=== PATIENT | female | born 1925 | race Caucasian/White ===

== ENCOUNTER 2017-01-15 14:05 | Inpatient (IN) | payer MEDICARE ==
--- NOTE | 2017-01-15 15:01 | EDM.PDOC ---
[id number]: [facility] Time Seen by Provider: 01/15/17 14:45 Source of Information: Reports: Patient, EMS, RN Notes Reviewed History Limitations: Reports: No Limitations - History of Present Illness INITIAL COMMENTS - FREE TEXT/NARRATIVE: 89-year-old female who is been feeling poorly for the last few days, weak, dizzy with activity and intermittent shortness of breath. She denies any chest pain, she's had some persistent nausea but no vomiting. No headache. No fevers or chills. No urinary tract symptoms. On evaluation at the assisted living, she was found to be bradycardic so was sent in to be evaluated. Onset: Unknown/Unsure Severity: Moderate Associated Symptoms: Reports: Malaise, Nausea/Vomiting, Shortness of Breath, Weakness. Denies: Confusion, Chest Pain, Cough - Related Data Allergies Allergy/AdvReac Type Severity Reaction Status Date / Time Penicillins Allergy Swelling Verified 01/15/17 14:28 Home Meds: Home Meds Albuterol Sulfate [Proair Hfa] 8.5 gm IH Q4HR PRN 11/30/13 [History] Aspirin [Aspirin EC] 81 mg PO DAILY 11/30/13 [History] Fluconazole 150 mg PO Q7D 11/30/13 [History] Omeprazole 40 mg PO DAILY 11/30/13 [History] Travoprost [Travatan Z 0.004% Ophth Soln] 1 drop EYEBOTH DAILY 11/30/13 [History ] amLODIPine Besylate [Amlodipine Besylate] 2.5 mg PO DAILY 11/30/13 [History] tiZANidine HCl [Tizanidine HCl] 1 tab PO BEDTIME 01/18/15 [History] Acetaminophen [Tylenol] 650 mg PO TID 01/15/17 [History] Clotrimazole [Lotrimin AF 1% Crm] 30 gm TOP DAILY 01/15/17 [History] Diclofenac Sodium [Voltaren] 1 applic TOP QID 01/15/17 [History] Donepezil HCl [Aricept] 10 mg PO BEDTIME 01/15/17 [History] Furosemide 20 mg PO 1400 01/15/17 [History] Levothyroxine 25 mcg PO ACBREAKFAST 01/15/17 [History] Lisinopril 20 mg PO DAILY 01/15/17 [History] Memantine HCl [Namenda] 10 mg PO BID 01/15/17 [History] Polyethylene Glycol 3350 [MiraLAX] 17 gm PO DAILY 01/15/17 [History] Sucralfate 1 gm PO QID 01/15/17 [History] Acetaminophen [Tylenol] 650 mg PO Q6H PRN #30 tablet 01/17/17 [Rx] Past Medical History Other Genitourinary History: chronic renal failure - Past Surgical History Other Neurological Surgeries/Procedures: spinal surgery * poor historian* Social & Family History - Tobacco Use Smoking Status *Q: Never Smoker Second Hand Smoke Exposure: No - Caffeine Use Caffeine Use: Reports: Coffee, Soda, Tea - Alcohol Use Days Per Week of Alcohol Use: 7 Number of Drinks Per Day: 3 Total Drinks Per Week: 21 - Recreational Drug Use Recreational Drug Use: No ED ROS GENERAL - Review of Systems Review Of Systems: See Below Constitutional: Reports: No Symptoms HEENT: Reports: No Symptoms Respiratory: Reports: Shortness of Breath (Intermittent and mild) Cardiovascular: Denies: Chest Pain GI/Abdominal: Reports: Nausea. Denies: Abdominal Pain, Vomiting : Reports: No Symptoms Skin: Reports: No Symptoms Neurological: Reports: Dizziness, Weakness. Denies: Headache, Syncope Psychiatric: Reports: No Symptoms ED EXAM, GENERAL - Physical Exam Exam: See Below Exam Limited By: No Limitations General Appearance: Alert, No Apparent Distress Eye Exam: Bilateral Eye: EOMI, Other (No jaundice) Throat/Mouth: Normal Inspection, Other (Normal hydration) Head: Atraumatic Respiratory/Chest: No Respiratory Distress, Lungs Clear, Decreased Breath Sounds (Decreased breath sounds throughout, no other abnormality) Cardiovascular: Regular Rate, Rhythm, No Murmur, Bradycardia GI/Abdominal: Soft, Other (Some vague discomfort with palpation of the upper abdomen but no focal tenderness) Extremities: Pedal Edema (Just a trace of lower extremity edema) Neurological: Alert, Oriented, No Motor/Sensory Deficits Skin Exam: Warm, Dry EKG INTERPRETATION EKG Interpretation Comments: EKG revealed sinus bradycardia with a rate of around 30. CBC, CMP and troponin were obtained. Course - Vital Signs Last Recorded V/S: Last Vital Signs Temp 97.9 F 01/17/17 12:00 Pulse 65 01/17/17 12:00 Resp 18 01/17/17 12:00 BP 129/59 L 01/17/17 12:00 Pulse Ox 96 01/17/17 12:00 - Orders/Labs/Meds Labs: Laboratory Tests 01/15/17 01/15/17 01/15/17 Range/Units 14:57 15:15 15:15 WBC 6.0 (4.5-11.0) K/uL RBC 3.95 (3.30-5.50) M/uL Hgb 11.5 L (12.0-15.0) g/dL Hct 33.3 L (36.0-48.0) % MCV 84 (80-98) fL MCH 29 (27-31) pg MCHC 35 (32-36) % Plt Count 315 (150-400) K/uL Neut % (Auto) 51 (36-66) % Lymph % (Auto) 29 (24-44) % [place] % (Auto) 11 H (2-6) % Eos % (Auto) 8 H (2-4) % Baso % (Auto) 1 (0-1) % Sodium 131 L (140-148) mmol/L Potassium 5.4 H (3.6-5.2) mmol/L Chloride 99 L (100-108) mmol/L Carbon Dioxide 28 (21-32) mmol/L Anion Gap 9.4 (5.0-14.0) mmol/L BUN 33 H (7-18) mg/dL Creatinine 1.4 H (0.6-1.0) mg/dL Est Cr Clr Drug Dosing 24.51 mL/min Estimated GFR (MDRD) 35 L (>60) Glucose 116 H (74-106) mg/dL Calcium 9.2 (8.5-10.1) mg/dL Total Bilirubin 0.4 (0.2-1.0) mg/dL AST 14 L (15-37) U/L ALT 17 (12-78) U/L Alkaline Phosphatase 98 (46-116) U/L Troponin I < 0.017 (0.000-0.056) ng/mL Total Protein 7.3 (6.4-8.2) g/dL Albumin 3.3 L (3.4-5.0) g/dL Globulin 4.0 H (2.3-3.5) g/dL Albumin/Globulin Ratio 0.8 L (1.2-2.2) Meds: Medications Discontinued Medications Generic Name Dose Route Start Last Admin Trade Name Freq PRN Reason Stop Dose Admin Acetaminophen 650 mg 01/15/17 17:25 Tylenol PO Q4H PRN Pain (Mild 1-3)/fever Hydrocodone Bitart/Acetaminophen 1 tab 01/16/17 16:00 01/16/17 21:31 [place] 325-5 Mg PO 1 tab Q4H PRN Administration PAIN Albuterol 0 gm 01/15/17 17:25 Ventolin Hfa INH Q4H PRN Dyspnea Albuterol 2.5 mg 01/15/17 17:25 Proventil Neb Soln NEB Q4H PRN Shortness Of Breath/wheezing Albuterol/Ipratropium 3 ml 01/16/17 13:00 01/16/17 13:33 Duoneb 3.0-0.5 Mg/3 Ml INH 3 ml ONCALL RONAK Administration Amlodipine Besylate 2.5 mg 01/16/17 09:00 01/17/17 10:04 Norvasc PO 2.5 mg DAILY RONAK Administration Bupivacaine HCl Confirm 01/16/17 11:44 01/16/17 15:40 Marcaine 0.5% Administered 01/16/17 11:45 10 ml Dose Administration 50 ml .ROUTE .STK-MED ONE Docusate Sodium 100 mg 01/15/17 17:25 Colace PO BID PRN Constipation Donepezil HCl 10 mg 01/15/17 21:00 01/16/17 21:31 Aricept PO 10 mg BEDTIME RONAK Administration Fentanyl Confirm 01/16/17 13:00 Sublimaze Administered 01/16/17 13:01 Dose 100 mcg .ROUTE .STK-MED ONE Furosemide 20 mg 01/16/17 14:00 01/17/17 14:55 Lasix PO 20 mg 1400 RONAK Administration Hydralazine HCl 10 mg 01/15/17 21:24 01/16/17 15:58 Apresoline IVPUSH 10 mg Q4H PRN Administration Hypertension Lactated Ringer's 1,000 mls @ 75 mls/hr 01/15/17 17:25 01/16/17 08:01 Ringers, Lactated IV 75 mls/hr ASDIRECTED RONAK Administration Cefazolin Sodium 2 gm/ Sodium 50 mls @ 100 mls/hr 01/16/17 13:00 08/09/17 13: 30 Chloride IV 01/16/17 13:29 100 mls/hr ONCALL ONE Administration Linezolid Confirm 01/16/17 11:55 Zyvox Administered 01/16/17 11:56 Dose 100 mls @ as directed .ROUTE .STK-MED ONE Dextrose/Lactated Ringer's 1,000 mls @ 100 mls/hr 01/16/17 16:00 Dextrose 5%-Lactated Ringers IV ASDIRECTED RONAK Cefazolin Sodium 2 gm/ Sodium 50 mls @ 100 mls/hr 01/16/17 21:00 01/17/17 14: 27 Chloride IV 01/17/17 13:29 Not Given Q8H RONAK Latanoprost 0 ml 01/15/17 21:00 01/16/17 21:32 Xalatan 0.005% Ophth Soln EYEBOTH 1 drop BEDTIME RONAK Administration Levothyroxine Sodium 25 mcg 01/16/17 07:30 01/17/17 08:10 Levothyroxine PO 25 mcg ACBREAKFAST RONAK Administration Lidocaine/Epinephrine Confirm 01/16/17 11:44 01/16/17 15:41 Xylocaine 1% With Epinephrine 1:100,000 Administered 01/16/17 11:45 10 ml Dose Administration 50 ml .ROUTE .STK-MED ONE Linezolid 200 mg 01/16/17 14:05 01/16/17 14:05 Zyvox IV 01/16/17 14:06 200 mg .STK-MED ONE Administration Lisinopril 20 mg 01/16/17 09:00 01/17/17 10:07 Prinivil PO 20 mg DAILY RONAK Administration Magnesium Hydroxide 30 ml 01/15/17 17:25 Milk Of Magnesia PO Q12H PRN Constipation Memantine 10 mg 01/15/17 21:00 01/17/17 10:06 Namenda PO 10 mg BID RONAK Administration Ondansetron HCl 4 mg 01/15/17 17:25 Zofran IV Q4H PRN Nausea/Vomiting Oxycodone HCl 5 mg 01/15/17 17:25 Oxycodone PO Q4H PRN Pain (moderate 4-6) Pantoprazole Sodium 40 mg 01/16/17 07:30 01/17/17 08:10 Protonix PO 40 mg ACBREAKFAST RONAK Administration Polyethylene Glycol 17 gm 01/16/17 09:00 01/17/17 10:04 Miralax PO 17 gm DAILY RONAK Administration Propofol Confirm 01/16/17 13:00 Diprivan 20 Ml Administered 01/16/17 13:01 Dose 200 mg .ROUTE .STK-MED ONE Propofol Confirm 01/16/17 14:20 Diprivan 20 Ml Administered 01/16/17 14:21 Dose 200 mg .ROUTE .STK-MED ONE Sodium Chloride 10 ml 01/15/17 17:25 Saline Flush FLUSH ASDIRECTED PRN Keep Vein Open Sodium Polystyrene Sulfonate 15 gm 01/15/17 18:00 01/15/17 18:19 Kayexalate PO 01/15/17 18:01 15 gm ONETIME ONE Administration Sucralfate 1 gm 01/15/17 22:00 01/17/17 10:07 Carafate PO 1 gm QID RONAK Administration Tizanidine HCl 4 mg 01/15/17 21:00 01/16/17 21:31 Zanaflex PO 4 mg BEDTIME RONAK Administration - Re-Assessments/Exams Free Text/Narrative Re-Assessment/Exam: Troponin was negative, rest of labs reassuring and not significantly abnormal. Patient remained bradycardic so was admitted for observation, consideration for pacemaker if another cause is not found and rate persists. Departure - Departure Time of Disposition: 18:00 Disposition: Admitted As Inpatient 68 Reason for Transfer *Q: Other Condition: Fair Clinical Impression: Bradycardia
--- NOTE | 2017-01-15 17:01 | PCM.HP ---
H&P History of Present Illness - General Date of Service: 01/15/17 Admit Problem/Dx: Admission Diagnosis/Problem Admission Diagnosis/Problem Bradycardia Source of Information: Patient, Provider, RN Notes Reviewed History Limitations: Reports: Altered Mental Status (Dementia) - History of Present Illness Initial Comments - Free Text/Narative: Ms. Chairez is an 89-year-old woman who is admitted through the emergency department with weakness and lightheadedness secondary to severe sinus bradycardia. She denies any previous cardiac history although she has difficulty recalling recent symptoms and events because of underlying dementia. She reports feeling more weak and lightheaded with shortness of breath and decrease in appetite over the past 2 days. She lives in assisted living facility in [place], when they checked her heart rate this morning it was consistently in the 30s. She was brought into the emergency department evaluation and again has been noted heart rate into the 30s although not continuously. On review medication there are no obvious rate slowing medications other than her Aricept and she's taken this for some time without significant difficulty. - Related Data Allergies/Adverse Reactions: Allergies Allergy/AdvReac Type Severity Reaction Status Date / Time Penicillins Allergy Swelling Verified 01/15/17 14:28 Home Medications: Home Meds Albuterol Sulfate [Proair Hfa] 8.5 gm IH Q4HR PRN 11/30/13 [History] Aspirin [Aspirin EC] 81 mg PO DAILY 11/30/13 [History] Fluconazole 150 mg PO Q7D 11/30/13 [History] Omeprazole 40 mg PO DAILY 11/30/13 [History] Travoprost [Travatan Z 0.004% Ophth Soln] 1 drop EYEBOTH DAILY 11/30/13 [History ] amLODIPine Besylate [Amlodipine Besylate] 2.5 mg PO DAILY 11/30/13 [History] tiZANidine HCl [Tizanidine HCl] 1 tab PO BEDTIME 01/18/15 [History] Acetaminophen [Tylenol] 650 mg PO TID 01/15/17 [History] Clotrimazole [Lotrimin AF 1% Crm] 30 gm TOP DAILY 01/15/17 [History] Diclofenac Sodium [Voltaren] 1 applic TOP QID 01/15/17 [History] Donepezil HCl [Aricept] 10 mg PO BEDTIME 01/15/17 [History] Furosemide 20 mg PO 1400 01/15/17 [History] Levothyroxine 25 mcg PO ACBREAKFAST 01/15/17 [History] Lisinopril 20 mg PO DAILY 01/15/17 [History] Memantine HCl [Namenda] 10 mg PO BID 01/15/17 [History] Polyethylene Glycol 3350 [MiraLAX] 17 gm PO DAILY 01/15/17 [History] Sucralfate 1 gm PO QID 01/15/17 [History] Past Medical History HEENT History: Reports: Other (See Below) Other HEENT History: unable to obtain Cardiovascular History: Reports: Other (See Below) Other Cardiovascular History: unable to obtain Respiratory History: Reports: Other (See Below) Other Respiratory History: unable to obtain Gastrointestinal History: Reports: Other (See Below) Other Gastrointestinal History: unable to obtain Other Genitourinary History: chronic renal failure Musculoskeletal History: Reports: Other (See Below) Other Musculoskeletal History: unable to obtain Neurological History: Reports: Other (See Below) Other Neuro History: unable to obtain Endocrine/Metabolic History: Reports: Other (See Below) Other Endocrine/Metabolic History: unable to obtain - Past Surgical History Other Neurological Surgeries/Procedures: spinal surgery * poor historian* Social & Family History - Tobacco Use Smoking Status *Q: Never Smoker Second Hand Smoke Exposure: No - Caffeine Use Caffeine Use: Reports: Coffee, Soda, Tea - Alcohol Use Days Per Week of Alcohol Use: 7 Number of Drinks Per Day: 3 Total Drinks Per Week: 21 - Recreational Drug Use Recreational Drug Use: No H&P Review of Systems - Review of Systems: Review Of Systems: See Below General: Reports: Weakness, Decreased Appetite HEENT: Reports: No Symptoms Pulmonary: Reports: No Symptoms Cardiovascular: Reports: Dyspnea on Exertion, Lightheadedness. Denies: Chest Pain, Palpitations, Orthopnea, PND, Edema, Syncope Gastrointestinal: Reports: No Symptoms Genitourinary: Reports: No Symptoms Musculoskeletal: Reports: No Symptoms Skin: Reports: No Symptoms Psychiatric: Reports: No Symptoms Neurological: Reports: No Symptoms Hematologic/Lymphatic: Reports: No Symptoms Immunologic: Reports: No Symptoms Exam - Exam Exam: See Below - Vital Signs Vital Signs: Last Vital Signs Temp 97.6 F 01/15/17 14:26 Pulse 60 01/15/17 14:26 Resp 16 01/15/17 14:26 BP 149/68 H 01/15/17 14:26 Pulse Ox 95 01/15/17 14:26 Weight: 200 lb - Exam Quality Assessment: DVT Prophylaxis General: Alert, Cooperative HEENT: Conjunctiva Clear, Hearing Intact, Mucosa Moist & [place], Normal Nasal Septum, Posterior Pharynx Clear, Pupils Equal Neck: Supple, Trachea Midline, +2 Carotid Pulse wo Bruit Lungs: Clear to Auscultation, Normal Respiratory Effort Cardiovascular: Regular Rhythm, Normal S1, Normal S2, Bradycardia. No: Systolic Murmur, Diastolic Murmur GI/Abdominal Exam: Normal Bowel Sounds, Soft, Non-Tender, No Distention Back Exam: Normal Inspection, Full Range of Motion, NT Extremities: Normal Inspection, No Pedal Edema Skin: Warm, Dry, Intact Neurological: Cranial Nerves Intact, Strength Equal Bilateral, Normal Speech, Normal Tone, Sensation Intact. No: Focal Deficit Neuro Extensive - Mental Status: Alert, Disorientation to Time, Memory Loss- Recent Events. No: Memory Intact, Disorientation to Person, Disorientation to Place, Memory Loss-Remote Events - Patient Data Result Diagrams: 01/15/17 15:15 01/15/17 15:15 *Q Meaningful Use (ADM) - VTE *Q VTE Criteria *Q: VTE Pharmacological Contraindications *Q: Patient Scheduled Surgery - VTE Risk Assess *Q Each Risk Factor Represents 1 Point: Obesity (BMI greater than 30) Total Score 1 Point Risk Factors: 1 Each Risk Factor Represents 2 Points: None Total Score 2 Point Risk Factors: 0 Each Risk Factor Represents 3 Points: Age 75 Years or Greater Total Score 3 Point Risk Factors: 3 Each Risk Factor Represents 5 Points: None Total Score 5 Point Risk Factors: 0 Venous Thromboembolism Risk Factor Score *Q: 4 - Stroke *Q Stroke Criteria *Q: - AMI *Q AMI Criteria *Q: Problem List Initiated/Reviewed/Updated: Yes Orders Last 24hrs: Active Orders 24 hr Category Date Time Status Resuscitation Status Routine Resus Stat 01/15/17 16:34 Ordered Assessment/Plan Comment:: ASSESSMENT AND PLAN SYMPTOMATIC SINUS BRADYCARDIA-she's had symptoms of weakness, lightheadedness, shortness of breath, and decreased appetite over the past 2 days. This morning when heart rate was checked at the assisted living facility was noted to be consistently in the 30s. She is also had documented heart rates with sinus bradycardia in the emergency department. She is on no obvious rate slowing medication other than possibly the Aricept although she's taken this for some time and has not had previous difficulties. -Admit to ICU for monitoring -Nothing by mouth after midnight -IV fluids for hydration -Consult Dr. Palmer in a.m. for dual-chamber permanent pacemaker placement HYPERKALEMIA -Kayexalate 15 g by mouth now -Repeat potassium level in a.m. CHRONIC KIDNEY DISEASE STAGE III -Closely monitor renal function and urine output during hospital stay DEMENTIA -Continue outpatient medical regimen MAINTENANCE ISSUES -DVT prophylaxis; SCUDs, hold on anticoagulation pending pacemaker placement -GI prophylaxis; not indicated -Croft catheter; not indicated -Nutrition; regular diet, nothing by mouth after midnight -Nicotine dependence; not required CODE STATUS-FULL CODE ADMISSION STATUS-patient will be admitted to inpatient status, expect at least a 2 night hospital stay for evaluation and management of problems as outlined above. At the time of this admission I do not reasonably expected evaluation and management of this problem will require more than a 96 hour hospital stay. DISPOSITION-anticipate discharge to home after the hospital stay. PRIMARY CARE PROVIDER-
[2017-01-15] MEDS ORDERED: oxyCODONE 5 MG Tab PO PRN (17:25)
[2017-01-15] MEDS ORDERED: Albuterol 8 GM Inhaler INH PRN (17:25)
[2017-01-15] MEDS ORDERED: Albuterol 0.083% 2.5 MG/3 ML Neb Soln NEB PRN (17:25)
[2017-01-15] MEDS ORDERED: Ondansetron 4 MG/2 ML SDV IV PRN (17:25)
[2017-01-15] MEDS ORDERED: Docusate Sodium 100 MG Cap PO PRN (17:25)
[2017-01-15] MEDS ORDERED: Acetaminophen 325 MG Tab PO PRN (17:25)
[2017-01-15] MEDS ORDERED: Sodium Chloride 0.9% 10 ML Syringe FLUSH PRN (17:25)
[2017-01-15] MEDS ORDERED: Magnesium Hydroxide 400 MG/5 ML Susp 30 ML Cup PO PRN (17:25)
[2017-01-15] MEDS ORDERED: Sodium Polystyrene Sulfonate 15 GM/60 ML Susp 60 ML Bot PO ONE (18:00)
[2017-01-15] MEDS: Lactated Ringers 1,000 ML IV SCH (18:46)
[2017-01-15] MEDS: tiZANidine 4 MG Tab PO SCH (20:57)
[2017-01-15] MEDS: Donepezil 10 MG Tab PO SCH (20:57)
[2017-01-15] MEDS: Memantine 10 MG Tab PO SCH (20:57)
[2017-01-15] MEDS: Latanoprost 0.005% Ophth Soln 2.5 ML Bottle EYEBOTH SCH (20:58)
[2017-01-15] MEDS: Sucralfate 1 GM Tab PO SCH (21:02)
[2017-01-15] MEDS: hydrALAZINE 20 MG/ML SDV IVPUSH PRN (22:04)
[2017-01-16] MEDS: Sucralfate 1 GM Tab PO SCH ×4 (05:57→21:31)
[2017-01-16] MEDS: Lactated Ringers 1,000 ML IV SCH (08:01)
[2017-01-16] MEDS: Levothyroxine 25 MCG Tab PO SCH (08:56)
[2017-01-16] MEDS: Pantoprazole 40 MG Tab.CR PO SCH (08:56)
[2017-01-16] MEDS: Polyethylene Glycol 3350 Powder 17 GM Packet PO SCH (08:57)
[2017-01-16] MEDS: amLODIPine 2.5 MG Tab PO SCH (08:58)
[2017-01-16] MEDS: Memantine 10 MG Tab PO SCH ×2 (08:58→21:31)
[2017-01-16] MEDS: Lisinopril 20 MG Tab PO SCH (08:59)
--- NOTE | 2017-01-16 09:21 | PCM.PN ---
- General Info Date of Service: 01/16/17 Functional Status: Reports: Pain Controlled - Review of Systems General: Reports: Weakness. Denies: Fever, Chills Pulmonary: Reports: No Symptoms Cardiovascular: Reports: No Symptoms Gastrointestinal: Reports: No Symptoms Psychiatric: Reports: Confusion Systems Review Comment:: Ms. Chairez has remained fairly stable since admission, while in the intensive care unit has not had significant bradycardia as she did yesterday at the assisted living and in the emergency department. She did not sleep well and feels somewhat tired but otherwise denies significant symptoms. Vital signs have otherwise been stable and she has remained afebrile. - Patient Data Vitals - Most Recent: Last Vital Signs Temp 98.4 F 01/16/17 07:00 Pulse 75 01/16/17 07:00 Resp 22 H 01/16/17 07:00 BP 194/64 H 01/16/17 08:59 Pulse Ox 94 L 01/16/17 07:00 Weight - Most Recent: 199 lb 0.004 oz I&O - Last 24 Hours: Intake & Output 01/15/17 01/16/17 01/16/17 22:59 06:59 14:59 Intake Total 818 Balance 818 Lab Results Last 24 Hours: Laboratory Results - last 24 hr 01/16/17 01/16/17 Range/Units 05:58 05:58 Sodium 135 L (140-148) mmol/L Potassium 4.1 (3.6-5.2) mmol/L Chloride 102 (100-108) mmol/L Carbon Dioxide 26 (21-32) mmol/L Anion Gap 11.1 (5.0-14.0) mmol/L BUN 26 H (7-18) mg/dL Creatinine 1.1 H (0.6-1.0) mg/dL Est Cr Clr Drug Dosing 31.20 mL/min Estimated GFR (MDRD) 47 L (>60) Glucose 97 (74-106) mg/dL Calcium 9.2 (8.5-10.1) mg/dL TSH, Ultra Sensitive 1.949 (0.358-3.740) uIU/mL Med Orders - Current: Current Medications Acetaminophen (Tylenol) 650 mg PO Q4H PRN PRN Reason: Pain (Mild 1-3)/fever Albuterol (Ventolin Hfa) 0 gm INH Q4H PRN PRN Reason: Dyspnea Albuterol (Proventil Neb Soln) 2.5 mg NEB Q4H PRN PRN Reason: Shortness Of Breath/wheezing Albuterol/Ipratropium (Duoneb 3.0-0.5 Mg/3 Ml) 3 ml INH ONCALL RONAK Amlodipine Besylate (Norvasc) 2.5 mg PO DAILY [facility] Last Admin: 01/16/17 08:58 Dose: 2.5 mg Docusate Sodium (Colace) 100 mg PO BID PRN PRN Reason: Constipation Donepezil HCl (Aricept) 10 mg PO BEDTIME [facility] Last Admin: 01/15/17 20:57 Dose: 10 mg Furosemide (Lasix) 20 mg PO 1400 RONAK Hydralazine HCl (Apresoline) 10 mg IVPUSH Q4H PRN PRN Reason: Hypertension Last Admin: 01/15/17 22:04 Dose: 10 mg Lactated Ringer's (Ringers, Lactated) 1,000 mls @ 75 mls/hr IV ASDIRECTED [facility] Last Admin: 01/16/17 08:01 Dose: 75 mls/hr Cefazolin Sodium 2 gm/ Sodium (Chloride) 50 mls @ 100 mls/hr IV ONCALL ONE Stop: 01/16/17 13:29 Latanoprost (Xalatan 0.005% Ophth Soln) 0 ml EYEBOTH BEDTIME [facility] Last Admin: 01/15/17 20:58 Dose: 1 drop Levothyroxine Sodium (Levothyroxine) 25 mcg PO ACBREAKFAST [facility] Last Admin: 01/16/17 08:56 Dose: 25 mcg Lisinopril (Prinivil) 20 mg PO DAILY [facility] Last Admin: 01/16/17 08:59 Dose: 20 mg Magnesium Hydroxide (Milk Of Magnesia) 30 ml PO Q12H PRN PRN Reason: Constipation Memantine (Namenda) 10 mg PO BID [facility] Last Admin: 01/16/17 08:58 Dose: Not Given Ondansetron HCl (Zofran) 4 mg IV Q4H PRN PRN Reason: Nausea/Vomiting Oxycodone HCl (Oxycodone) 5 mg PO Q4H PRN PRN Reason: Pain (moderate 4-6) Pantoprazole Sodium (Protonix) 40 mg PO ACBREAKFAST [facility] Last Admin: 01/16/17 08:56 Dose: 40 mg Polyethylene Glycol (Miralax) 17 gm PO DAILY [facility] Last Admin: 01/16/17 08:57 Dose: Not Given Sodium Chloride (Saline Flush) 10 ml FLUSH ASDIRECTED PRN PRN Reason: Keep Vein Open Sucralfate (Carafate) 1 gm PO QID [facility] Last Admin: 01/16/17 08:59 Dose: Not Given Tizanidine HCl (Zanaflex) 4 mg PO BEDTIME [facility] Last Admin: 01/15/17 20:57 Dose: 4 mg Discontinued Medications Sodium Polystyrene Sulfonate (Kayexalate) 15 gm PO ONETIME ONE Stop: 01/15/17 18:01 Last Admin: 01/15/17 18:19 Dose: 15 gm - Exam Quality Assessment: DVT Prophylaxis General: Alert, Cooperative, No Acute Distress Lungs: Clear to Auscultation, Normal Respiratory Effort Cardiovascular: Regular Rhythm, No Murmurs, Bradycardia. No: Irregular Rhythm, Tachycardia GI/Abdominal Exam: Normal Bowel Sounds, Soft, Non-Tender, No Distention Extremities: Normal Inspection, No Pedal Edema Skin: Warm, Dry, Intact - Problem List Review Problem List Initiated/Reviewed/Updated: Yes - My Orders Last 24 Hours: My Active Orders 01/15/17 16:34 Resuscitation Status Routine 01/15/17 17:25 Patient Status [ADT] Routine Bedrest Bedside Commode [RC] ASDIRECTED Intake and Output [RC] QSHIFT Notify Provider Consults [RC] ASDIRECTED Notify Provider Vital Signs [RC] ASDIRECTED Oxygen Therapy [RC] PRN Peripheral IV Care [RC] Q12H RT Aerosol Therapy [RC] ASDIRECTED Up With Assistance [RC] ASDIRECTED VTE/DVT Education [RC] Per Unit Routine Vital Signs [RC] Q2H Consult to Physician [CONS] Routine Acetaminophen [Tylenol] 650 mg PO Q4H PRN Albuterol [Proventil Neb Soln] 2.5 mg NEB Q4H PRN Docusate Sodium [Colace] 100 mg PO BID PRN Lactated Ringers [Ringers, Lactated] 1,000 ml IV ASDIRECTED Magnesium Hydroxide [Milk of Magnesia] 30 ml PO Q12H PRN Ondansetron [Zofran] 4 mg IV Q4H PRN Sodium Chloride 0.9% [Saline Flush] 10 ml FLUSH ASDIRECTED PRN oxyCODONE 5 mg PO Q4H PRN Peripheral IV Insertion Adult [OM.PC] Routine Sequential Compression Device [OM.PC] Per Unit Routine VTE Pharmacological Contraindications [AST] Per Unit Routine 01/15/17 21:24 hydrALAZINE [Apresoline] 10 mg IVPUSH Q4H PRN 01/16/17 Breakfast Nothing per Oral After Midnight Diet [DIET] - Plan Plan:: ASSESSMENT AND PLAN SYMPTOMATIC SINUS BRADYCARDIA-she's had symptoms of weakness, lightheadedness, shortness of breath, and decreased appetite over the past 2 days. This morning when heart rate was checked at the assisted living facility was noted to be consistently in the 30s. She is also had documented heart rates with sinus bradycardia in the emergency department. She is on no obvious rate slowing medication other than possibly the Aricept although she's taken this for some time and has not had previous difficulties. -Admit to ICU for monitoring -Nothing by mouth after midnight -IV fluids for hydration -Dual-chamber permanent pacemaker placement today by Dr. Palmer HYPERKALEMIA-resolved with management CHRONIC KIDNEY DISEASE STAGE III -Closely monitor renal function and urine output during hospital stay DEMENTIA -Continue outpatient medical regimen MAINTENANCE ISSUES -DVT prophylaxis; SCUDs, hold on anticoagulation pending pacemaker placement -GI prophylaxis; not indicated -Croft catheter; not indicated -Nutrition; regular diet, nothing by mouth after midnight -Nicotine dependence; not required CODE STATUS-FULL CODE ADMISSION STATUS-patient will be admitted to inpatient status, expect at least a 2 night hospital stay for evaluation and management of problems as outlined above. At the time of this admission I do not reasonably expected evaluation and management of this problem will require more than a 96 hour hospital stay. DISPOSITION-anticipate discharge to home after the hospital stay. PRIMARY CARE PROVIDER-
[2017-01-16] MEDS: hydrALAZINE 20 MG/ML SDV IVPUSH PRN ×2 (10:02→15:58)
[2017-01-16] MEDS ORDERED: Lidocaine 1% with EPINEPHrine 1:100,000 50 ML MDV ONE (11:44)
[2017-01-16] MEDS ORDERED: Bupivacaine 0.5% 50 ML MDV ONE (11:44)
[2017-01-16] MEDS ORDERED: ceFAZolin 2 GM in Sodium Chloride 0.9% 50 ML IV ONE (13:00)
[2017-01-16] MEDS ORDERED: Albuterol/Ipratropium 3.0-0.5 MG/3 ML Neb Soln INH SCH (13:00)
[2017-01-16] MEDS ORDERED: Propofol 200 MG/20 ML SDV ONE ×2 (13:00→14:20)
[2017-01-16] MEDS ORDERED: fentaNYL 100 MCG/2 ML SDV ONE (13:00)
[2017-01-16] MEDS ORDERED: Linezolid 200 MG/100 ML Bag IV ONE (14:05)
[2017-01-16] MEDS ORDERED: Dextrose 5%-Lactated Ringers 1,000 ML IV SCH (16:00)
[2017-01-16] MEDS: Furosemide 20 MG Tab PO SCH (16:07)
[2017-01-16] MEDS: Acetaminophen/HYDROcodone 325-5 MG Tab PO PRN ×2 (17:39→21:31)
[2017-01-16] MEDS: ceFAZolin 2 GM in Sodium Chloride 0.9% 50 ML IV SCH (21:30)
[2017-01-16] MEDS: tiZANidine 4 MG Tab PO SCH (21:31)
[2017-01-16] MEDS: Donepezil 10 MG Tab PO SCH (21:31)
[2017-01-16] MEDS: Latanoprost 0.005% Ophth Soln 2.5 ML Bottle EYEBOTH SCH (21:32)
[2017-01-17] MEDS: ceFAZolin 2 GM in Sodium Chloride 0.9% 50 ML IV SCH ×2 (04:34→14:27)
[2017-01-17] MEDS: Sucralfate 1 GM Tab PO SCH ×2 (06:56→10:07)
[2017-01-17] MEDS: Pantoprazole 40 MG Tab.CR PO SCH (08:10)
[2017-01-17] MEDS: Levothyroxine 25 MCG Tab PO SCH (08:10)
[2017-01-17] MEDS: Polyethylene Glycol 3350 Powder 17 GM Packet PO SCH (10:04)
[2017-01-17] MEDS: amLODIPine 2.5 MG Tab PO SCH (10:04)
[2017-01-17] MEDS: Memantine 10 MG Tab PO SCH (10:06)
[2017-01-17] MEDS: Lisinopril 20 MG Tab PO SCH (10:07)
[2017-01-17 12:51] VITALS: BP 129/59
[2017-01-17] MEDS: Furosemide 20 MG Tab PO SCH (14:55)
--- NOTE | 2017-01-20 12:16 | OR ---
DATE OF PROCEDURE: 01/16/2017 PREOPERATIVE DIAGNOSIS: Symptomatic sinus bradycardia. POSTOPERATIVE DIAGNOSIS: Symptomatic sinus bradycardia. OPERATIVE PROCEDURE: Placement of dual-chamber cardiac pacemaker (54535). ANESTHESIA: Local plus IV sedation. INDICATION FOR PROCEDURE: This is an 89-year-old presenting to the emergency room yesterday with symptomatic sinus bradycardia with rates as low as the upper 20s and 30s. Plan is to proceed with a dual-chamber pacemaker placement. Potential risks including bleeding, infection, malfunction of the pacemaker system, injury to underlying vasculature and/or lung were reviewed, and the patient wishes to proceed. DETAILS OF PROCEDURE: The patient was taken to the operating room and placed in a supine position. IV sedation was administered after which the upper chest and neck areas were prepped and draped. The left subclavian area was anesthetized with 1% lidocaine mixed with Marcaine, after which the left subclavian vein was cannulated, guidewire was passed and manipulated into the superior vena cava. Some additional local was then injected and a transverse incision was made and carried down through the skin and subcutaneous tissue, and through the pectoralis major fascia. At the plane behind the pectoralis major fascia, the pocket was then developed bluntly. At that point, a second wire was then placed. The Medtronic leads were then placed over the introducing peel-away catheters. Both of these were screw-in type leads. The atrial lead was Medtronic, model number 5076-45, and the ventricular 5076-52. Initially, the ventricular lead was placed. This was positioned up on the septum and screwed in and adequate electrical measurements were noted. The atrial lead was then similarly placed and likewise adequate pacing thresholds were identified. Both leads were tested at 10 V with no diaphragmatic pacing identified. The lesion was then positioned in the pocket with some 3-0 Vicryl stitch. The Medtronic pulse generator, model number [id number] was in place, and the adequate pacing and sensing functions were noted. The redundant lead and pulse generator were then placed in the pocket, which was then irrigated with Zyvox-containing saline solution. The incision was closed with some 3-0 Vicryl stitch deep and then a 4-0 Vicryl subcuticular stitch. Dressing was applied. The patient was taken to the recovery room in a satisfactory condition. Cain Palmer MD /[id number] cc: Copy sent to Steven Soto, SWETHA Hare
--- NOTE | 2017-01-21 09:46 | DISCH ---
FINAL DIAGNOSIS: Symptomatic sinus bradycardia. SECONDARY DIAGNOSES: 1. Gastroesophageal reflux disease. 2. Treated hypothyroidism. 3. Chronic constipation. 4. History of hypertension. 5. Dementia, being treated with Aricept. OPERATIVE PROCEDURE: Insertion of dual-chamber cardiac pacemaker that was done on 01/16/2017. HOSPITAL COURSE: This is an 89-year-old female presenting with symptomatic sinus bradycardia with her heart rate down in the 30s. After preoperative evaluation by Dr. Palmer and Dr. Sahu, the decision was made to proceed with a dual-chamber pacemaker that was placed without incident on 01/16/2017. Postoperatively, she has had no significant problems. She was discharged back to assisted living. Continue her present medications including Haldol for pain. Follow up will be with Dr. Palmer in [facility] on 02/23/2017 and the Cardiology service in [place] will be calling the patient regarding getting the pacemaker followup equipment set up. CC: [facility] [place] [facility]
== END 2017-01-17 16:25 | disposition other institution (70) | DRG 244 ==
LOC: JP.ED 14:05 → JP.ICU 16:27
PROVIDERS: ADMIT Hospitalist; ATTEND Hospitalist
PROC: 0JH606Z Insertion of Pacemaker, Dual Chamber into Chest Subcutaneous Tissue and Fascia, Open Approach (ICD-10-PCS; principal; 2017-01-16)
PROC: 02HL3JZ Insertion of Pacemaker Lead into Left Ventricle, Percutaneous Approach (ICD-10-PCS; 2017-01-16)
DX: R00.1 Bradycardia, unspecified (principal); N18.9 Chronic kidney disease, unspecified; K21.9 Gastro-esophageal reflux disease without esophagitis; E03.9 Hypothyroidism, unspecified; K59.09 Other constipation; F03.90 Unspecified dementia, unspecified severity, without behavioral disturbance, psychotic disturbance, mood disturbance, and anxiety; E87.5 Hyperkalemia; I12.9 Hypertensive chronic kidney disease with stage 1 through stage 4 chronic kidney disease, or unspecified chronic kidney disease; Z79.899 Other long term (current) drug therapy; Z88.0 Allergy status to penicillin; N18.3 Chronic kidney disease, stage 3 (moderate)
CPT/HCPCS: 36415; 80048; 80053; 84443; 84484; 85025; 93005; 93010; 99285-25; A9270-GY; C1785; C1898; J0360; J0690; J2020; J2704; J3010; J7050; J7120; J7620